=== PATIENT | female | born 1960 | race Caucasian/White ===

== ENCOUNTER 2017-07-07 13:50 | Emergency (ER) | payer OTHER ==
[~2017-07-07] VITALS: Ht 157.5 cm; Wt 56.7 kg
[~2017-07-07 13:50] MED LIST: ZPAK PO
[2017-07-07] MEDS ORDERED: NOHOMEMEDICATIONS (14:00)
[2017-07-07] MEDS ORDERED: HYDROCODONE-AP1 EAC6 PO (17:01)
[2017-07-07 17:54] VITALS: BP 128/70
== END 2017-07-07 17:55 | disposition home or self-care (01) ==
LOC: M.ERS 13:50
DX: S82.092A Other fracture of left patella, initial encounter for closed fracture (principal); S70.02XA Contusion of left hip, initial encounter; S70.12XA Contusion of left thigh, initial encounter; S20.212A Contusion of left front wall of thorax, initial encounter; F17.210 Nicotine dependence, cigarettes, uncomplicated; Z90.710 Acquired absence of both cervix and uterus; Z90.49 Acquired absence of other specified parts of digestive tract; W11.XXXA Fall on and from ladder, initial encounter; Y93.89 Activity, other specified; Y92.89 Other specified places as the place of occurrence of the external cause; Y99.8 Other external cause status

== ENCOUNTER → 2017-09-02 | Outpatient (CLI) | payer OTHER ==
[~2017-09-02] MED LIST changes: +HYDROCODONE-AP1 EAC6 PO; +NOHOMEMEDICATIONS
== END ==
LOC: M.RAD 13:10
DX: M25.462 Effusion, left knee (principal)

== ENCOUNTER → 2017-09-03 | Outpatient (CLI) | payer OTHER | LOC: M.MRI 10:10 | DX: S80.02XA Contusion of left knee, initial encounter (principal); M12.46 Intermittent hydrarthrosis, knee; X58.XXXA Exposure to other specified factors, initial encounter; Y93.89 Activity, other specified; Y92.89 Other specified places as the place of occurrence of the external cause; Y99.8 Other external cause status ==